=== PATIENT | female | born 1945 | race Caucasian/White ===

== ENCOUNTER 2022-06-04 12:28 | Emergency (ER) | payer MEDICARE, BC, SELFPAY ==
[2022-06-04 12:42] VITALS: BP 161/87; PULSE 80; RESP 22; TEMP 37.1; O2SAT 93; BMI 34.2
--- NOTE | 2022-06-04 12:50 | ED.GENADULT ---
HPI - General Adult General Time Seen by Provider: 12:51 Date Seen: 06/04/22 Chief complaint: Back Injury/Pain Stated complaint: R side back/ribs pain Time Seen by Provider: 06/04/22 12:32 Source: patient and RN notes reviewed Mode of arrival: ambulatory Limitations: no limitations History of Present Illness HPI narrative: Patient is a 76-year-old female coming in with severe right-sided lower back pain. She initially had pain in this area about a month ago when she slipped on the driveway walking her dog. That fall happened so quickly, she was not even sure what all she did. She did not get seen after that fall. Yesterday she could not get out of bed in the morning. It was hurting in the right posterior chest wall. It hurt with movement, it hurts with breathing. She feels like she is having to breathe more shallow. She has not been sick with anything like a cough for cold. No fevers or chills, no night sweats. No GI symptoms with this. Her back did not hurt this bad with the fall. She is not aware of any current aggravating activities, does not think she re-injured it doing anything, no recurrent fall. Related Data Home Medications Medication Instructions Recorded Confirmed citalopram 20 mg tablet mg 06/04/22 losartan 100 mg tablet mg 06/04/22 metoprolol succinate 50 mg mg PO 06/04/22 tablet,extended release 24 hr rosuvastatin 40 mg tablet mg 06/04/22 Allergies Allergy/AdvReac Type Severity Reaction Status Date / Time No Known Drug Allergies Allergy Verified 06/04/22 14:48 Review of Systems Status of ROS: Reports: 10 or more systems reviewed and unremarkable except as noted in History and below PFSH PFS Social History Smoking Status: Never smoker How often do you have a drink containing alcohol: monthly or less How often do you have six or more drinks on one occasion: Never AUDIT-C Alcohol total score: 1 Non-prescribed substance use: denies use Exam Const: Vital Signs, click to edit/add: Vital Signs - 24 hr 06/04/22 12:42 06/04/22 13:43 06/04/22 14:27 Temperature 98.8 F Pulse Rate [Pulse Oximeter] 80 72 Respiratory Rate 22 16 Blood Pressure [Le ft Upper Arm] 161/87 H 117/64 Pulse Oximetry 93 92 91 Oxygen Delivery Me thod Room Air Room Air Course Reevaluation(s) Reevaluation #1: Have reviewed with patient that there is no traumatic injury seen on her scans that is acute. There is a small right pleural effusion and some compressive atelectasis. This was done without contrast, concern for underlying pneumonia is present. There are no rib fractures. I think her pain is coming from irritation from the pleural effusion and likely underlying pneumonia that is manifesting. Her labs are reassuring. At this time, her vitals are stable, pain is her main complaint, she is safe to discharge for trial of outpatient management at home. She is in agreement to the plan. We will dispense doxycycline from [facility]. Time: 15:58 Vital Signs Vital signs: Initial Vital Signs Temperature 98.8 F 06/04/22 12:42 Temperature Source Temporal Artery Scan 06/04/22 12:42 Pulse Rate 80 06/04/22 12:42 Pulse Rhythm 06/04/22 12:42 Respiratory Rate 22 06/04/22 12:42 Blood Pressure 161/87 H 06/04/22 12:42 Blood Pressure Mean 111 06/04/22 12:42 Pulse Oximetry 93 06/04/22 12:42 Oxygen Delivery Method 06/04/22 12:42 Vital Signs Temperature 98.8 F 06/04/22 12:42 Pulse Rate 80 06/04/22 12:42 Respiratory Rate 22 06/04/22 12:42 Blood Pressure 161/87 H 06/04/22 12:42 Pulse Oximetry 93 06/04/22 12:42 Oxygen Delivery Method 06/04/22 12:42 Temperature 98.8 F 06/04/22 12:42 Pulse Rate 72 06/04/22 14:27 Respiratory Rate 16 06/04/22 14:27 Blood Pressure 117/64 06/04/22 14:27 Pulse Oximetry 91 06/04/22 14:27 Oxygen Delivery Method 06/04/22 14:27 Medical Decision Making Lab Data Lab results reviewed: Yes I reviewed the patient's lab results Labs: Lab Results 06/04/22 06/04/22 06/04/22 Range/Units 13:15 13:20 13:20 WBC 8.12 (4.50-11.00) K/uL RBC 3.91 L (4.00-5.20) m/uL Hgb 12.2 (12.0-16.0) gm/dL Hct 37.5 (33.0-51.0) % MCV 96 (80-100) fL MCH 31 (26-34) pg MCHC 33 (32-36) gm/dL RDW Coeff of Aline 13.5 (11.5-15.5) % Plt Count 226 (140-440) K/uL Neut % (Auto) 77.9 H (42.0-72.0) % Lymph % (Auto) 10.1 L (20-44) % [place] % (Auto) 10.5 (0.0-11.0) % Eos % (Auto) 1.2 (0.0-7.0) % Baso % (Auto) 0.1 (0.0-3.0) % Neut # (Auto) 6.30 (1.7-7.0) K/uL Lymph # (Auto) 0.80 L (0.90-2.90) K/uL [place] # (Auto) 0.90 (0.00-0.90) K/UL Eos # (Auto) 0.10 (0.00-0.50) K/uL Baso # (Auto) 0.01 (0.00-0.30) K/uL VBG pH (7.32-7.43) VBG pCO2 (40-50) mmHG VBG pO2 (25-47) mmHG VBG HCO3 (21-28) mmol/L Sodium 137 (135-149) mmol/L Potassium 4.0 (3.6-5.1) mmol/L Chloride 105 (96-114) mmol/L Carbon Dioxide 25 (20-32) mmol/L BUN 14 (7-30) mg/dL Creatinine 0.6 (0.5-1.5) mg/dL Estimated Creat Clear 33.30 Estimated GFR 92 ml/min Glucose 117 H (60-115) mg/dL Lactate (0.5-1.9) mmol/L Calcium 10.0 (8.4-10.6) mg/dL Total Bilirubin 1.0 (0.1-1.5) mg/dL AST 31 (12-35) U/L ALT 45 H (4-35) U/L Alkaline Phosphatase 97 (40-150) U/L Total Protein 7.5 (6.0-8.3) g/dL Albumin 4.2 (3.3-5.0) g/dL SARS-CoV-2 (PCR) (Negative) POC Troponin I 0.02 (0.01-0.04) ng/ml 06/04/22 06/04/22 Range/Units 13:20 13:20 WBC (4.50-11.00) K/uL RBC (4.00-5.20) m/uL Hgb (12.0-16.0) gm/dL Hct (33.0-51.0) % MCV (80-100) fL MCH (26-34) pg MCHC (32-36) gm/dL RDW Coeff of Aline (11.5-15.5) % Plt Count (140-440) K/uL Neut % (Auto) (42.0-72.0) % Lymph % (Auto) (20-44) % [place] % (Auto) (0.0-11.0) % Eos % (Auto) (0.0-7.0) % Baso % (Auto) (0.0-3.0) % Neut # (Auto) (1.7-7.0) K/uL Lymph # (Auto) (0.90-2.90) K/uL [place] # (Auto) (0.00-0.90) K/UL Eos # (Auto) (0.00-0.50) K/uL Baso # (Auto) (0.00-0.30) K/uL VBG pH 7.399 (7.32-7.43) VBG pCO2 44 (40-50) mmHG VBG pO2 38.7 (25-47) mmHG VBG HCO3 27 (21-28) mmol/L Sodium (135-149) mmol/L Potassium (3.6-5.1) mmol/L Chloride (96-114) mmol/L Carbon Dioxide (20-32) mmol/L BUN (7-30) mg/dL Creatinine (0.5-1.5) mg/dL Estimated Creat Clear Estimated GFR ml/min Glucose (60-115) mg/dL Lactate 1.1 (0.5-1.9) mmol/L Calcium (8.4-10.6) mg/dL Total Bilirubin (0.1-1.5) mg/dL AST (12-35) U/L ALT (4-35) U/L Alkaline Phosphatase (40-150) U/L Total Protein (6.0-8.3) g/dL Albumin (3.3-5.0) g/dL SARS-CoV-2 (PCR) Negative SARS-CoV-2 (Negative) POC Troponin I (0.01-0.04) ng/ml Imaging Data CT thoracic spine: Attestation: I have reviewed the pertinent imaging results. Radiologist's impression: Patient: VICKIE DIETZ Facility:?[facility] Patient ID:?[id number] Site Patient ID:?[id number]. Site :?[id number] Study:?CT Spine Thoracic w/o Contrast-06/04/2022 2:21:50 PM Ordering Physician:Bobby Mauro Final Report: INDICATION: Back pain. Fall. TECHNIQUE: Noncontrast CT images acquired through the thoracic spine. COMPARISON: None. FINDINGS: Mild rightward thoracic curvature. Mildly exaggerated thoracic kyphosis. Vertebral heights maintained. No acute fracture. Multilevel osteophytes, largest in the mid and lower thoracic spine. Advanced multilevel disc height loss in the lower thoracic spine. Advanced multilevel facet arthropathy in the upper and mid thoracic spine contributing up to moderate neural foraminal narrowing bilaterally at T2-3, T3-4, and T6-7, as well as on the left at T7-8. No spinal canal stenosis. Small right pleural effusion. Mild to moderate atelectasis in the lower lobe of the right lung. IMPRESSION: 1. No acute fracture. 2. Multilevel thoracic spondylosis without spinal canal stenosis. 3. Small right pleural effusion. Please note that all CT scans at this facility use dose modulation, iterative reconstruction, and/or weight-based dosing when appropriate to reduce radiation dose to as low as reasonably achievable. Dictated by Donaldo Marcelo MD @ 06/04/2022 3:17:21 PM (Electronic Signature) CT scan - chest: Attestation: I have reviewed the pertinent imaging results. Radiologist's impression: Patient: VICKIE DIETZ Facility:?[facility] Patient ID:?[id number] Site Patient ID:?[id number]. Site :?[id number] Study:?CT Chest w/o Contrast-06/04/2022 2:22:27 PM Ordering Physician:Bobby Mauro Final Report: INDICATION: Right chest wall pain. TECHNIQUE: CT chest without contrast. COMPARISON: None. FINDINGS: Lungs and pleura: Small right pleural effusion with compressive atelectasis. Heart and vasculature: Heart size is normal. Thoracic aorta and pulmonary artery are normal in caliber. Aortic arch and coronary artery calcifications. Lymph nodes/mediastinum: No mediastinal, hilar, or axillary adenopathy. Chest wall: Bilateral peripherally calcified breast implants.. Upper abdomen: No significant findings. Right adrenal adenoma. Partial visualization of gallbladder stone. Bones: No acute displaced rib fractures. IMPRESSION: Small right pleural effusion with compressive atelectasis. Pneumonia should be clinically excluded. No acute intrathoracic abnormality, including displaced rib fractures as questioned. Please note that all CT scans at this facility use dose modulation, iterative reconstruction, and/or weight-based dosing when appropriate to reduce radiation dose to as low as reasonably achievable. Dictated by Chapo Kothari MD @ 06/04/2022 3:33:55 PM (Electronic Signature) Critical Care Time Critical Care Time Critical Care Time: No Discharge Plan Discharge Clinical Impression: Pleurisy with effusion, Pneumonia Condition: Stable Instructions: Pleurisy (ED), Community Acquired Pneumonia (ED) Additional Instructions: Start doxycycline 100 mg and take twice daily for 10 days, complete medication. Baseline for pain use Tylenol 1000 mg 3 times a day. For the next 3-5 days, can use some ibuprofen, 200 mg 2 to 3 times a day, take with food. Do not recommend using ibuprofen longer than 5 days as it could have negative affect on your kidneys. Need to schedule a clinic followup within the next 1-2 weeks for recheck. In the meantime, if your pain is worsening, develops fevers, our short of breath or having difficulty breathing, do recommend re-evaluation. Activity Level: Activity as Tolerated Prescriptions: No Action metoprolol succinate 50 mg tablet extended release 24 hr PO citalopram 20 mg tablet losartan 100 mg tablet rosuvastatin 40 mg tablet Follow Up/Referrals: Provider,Not a Local [Primary Care Provider] - Stand Alone Forms: [place] Info Instructions
--- NOTE | 2022-06-04 12:57 | CRLHL7_ITS ---
For Patients: As a result of the Century Cures Act, medical imaging exams and procedure reports are released immediately into your electronic medical record. You may view this report before your referring provider. If you have questions, please contact your health care provider. INDICATION: Right chest wall pain. TECHNIQUE: CT chest without contrast. COMPARISON: None. FINDINGS: Lungs and pleura: Small right pleural effusion with compressive atelectasis. Heart and vasculature: Heart size is normal. Thoracic aorta and pulmonary artery are normal in caliber. Aortic arch and coronary artery calcifications. Lymph nodes/mediastinum: No mediastinal, hilar, or axillary adenopathy. Chest wall: Bilateral peripherally calcified breast implants.. Upper abdomen: No significant findings. Right adrenal adenoma. Partial visualization of gallbladder stone. Bones: No acute displaced rib fractures. IMPRESSION: Small right pleural effusion with compressive atelectasis. Pneumonia should be clinically excluded. No acute intrathoracic abnormality, including displaced rib fractures as questioned. Please note that all CT scans at this facility use dose modulation, iterative reconstruction, and/or weight-based dosing when appropriate to reduce radiation dose to as low as reasonably achievable. Dictated by Chapo Kothari MD @ 06/04/2022 3:33:55 PM (Electronically Signed)
--- NOTE | 2022-06-04 12:57 | CRLHL7_ITS ---
For Patients: As a result of the Cures Act, medical imaging exams and procedure reports are released immediately into your electronic medical record. You may view this report before your referring provider. If you have questions, please contact your health care provider. INDICATION: Back pain. Fall. TECHNIQUE: Noncontrast CT images acquired through the thoracic spine. COMPARISON: None. FINDINGS: Mild rightward thoracic curvature. Mildly exaggerated thoracic kyphosis. Vertebral heights maintained. No acute fracture. Multilevel osteophytes, largest in the mid and lower thoracic spine. Advanced multilevel disc height loss in the lower thoracic spine. Advanced multilevel facet arthropathy in the upper and mid thoracic spine contributing up to moderate neural foraminal narrowing bilaterally at T2-3, T3-4, and T6-7, as well as on the left at T7-8. No spinal canal stenosis. Small right pleural effusion. Mild to moderate atelectasis in the lower lobe of the right lung. IMPRESSION: 1. No acute fracture. 2. Multilevel thoracic spondylosis without spinal canal stenosis. 3. Small right pleural effusion. Please note that all CT scans at this facility use dose modulation, iterative reconstruction, and/or weight-based dosing when appropriate to reduce radiation dose to as low as reasonably achievable. Dictated by Donaldo Marcelo MD @ 06/04/2022 3:17:21 PM (Electronically Signed)
[2022-06-04 13:26] LABS: HCO3 VBG 27 mmol/L (21-28); Lactate* 1.1 mmol/L (0.5-1.9); PCO2 VBG 44 mmHG (40-50); PO2 VBG 38.7 mmHG (25-47); pH VBG 7.399 (7.32-7.43)
[2022-06-04 13:27] LABS: Basophils Absolute Auto 0.01 K/uL (0.00-0.30); Basophils Percent Auto 0.1 % (0.0-3.0); Eosinophils Percent Auto 1.2 % (0.0-7.0); Hematocrit 37.5 % (33.0-51.0); Hemoglobin* 12.2 gm/dL (12.0-16.0); Immature Granulocytes Abs Auto 0.02 K/uL (0.00-0.30); Immature Granulocytes Pct Auto 0.2 %; Lymphocytes Percent Auto 10.1 % (20-44); Mean Corpuscular HGB Conc 33 gm/dL (32-36); Mean Corpuscular Hemoglobin 31 pg (26-34); Mean Corpuscular Volume 96 fL (80-100); Monocytes Percent Auto 10.5 % (0.0-11.0); Neutrophils Percent Auto 77.9 % (42.0-72.0); Platelet Count* 226 K/uL (140-440); RDW Coefficient of Variation % 13.5 % (11.5-15.5); Red Blood Count 3.91 m/uL (4.00-5.20); White Blood Count* 8.12 K/uL (4.50-11.00)
[2022-06-04 13:28] LABS: Slide Review Reflex No
[2022-06-04] MEDS: fentaNYL 100 MCG/2 ML inj 25 MCG IVP (13:39)
[2022-06-04] MEDS: ONDANSETRON 2 MG/ML inj 4 MG IVP (13:40)
[2022-06-04 13:43] VITALS: O2SAT 92
[2022-06-04 13:47] LABS: Troponin, Point-of-Care* 0.02 ng/ml (0.01-0.04)
[2022-06-04 13:48] LABS: Albumin* 4.2 g/dL (3.3-5.0); Chloride* 105 mmol/L (96-114); Sodium* 137 mmol/L (135-149)
[2022-06-04 13:50] LABS: Aspartate Amino Transferase* 31 U/L (12-35); Carbon Dioxide* 25 mmol/L (20-32); Creatinine* 0.6 mg/dL (0.5-1.5); Estimated Glomerular Filt Rate 92 ml/min; Total Protein* 7.5 g/dL (6.0-8.3)
[2022-06-04 13:51] LABS: Alanine Aminotransferase* 45 U/L (4-35); Alkaline Phosphatase* 97 U/L (40-150); Blood Urea Nitrogen* 14 mg/dL (7-30); Glucose* 117 mg/dL (60-115)
[2022-06-04 13:59] LABS: SARS PCR* Negative SARS-CoV-2 (Negative)
[2022-06-04 14:27] VITALS: BP 117/64; PULSE 72; RESP 16; O2SAT 91
== END 2022-06-04 16:27 | disposition home or self-care (01) ==
PROVIDERS: Emergency Provider Family Medicine
DX: J90 Pleural effusion, not elsewhere classified (principal); J18.9 Pneumonia, unspecified organism
CPT/HCPCS: 36415; 71250; 72128; 80053; 82803; 83605; 84484; 85025; 87635; 94761; 96374; 96375; 99284; J2405; J3010